=== PATIENT | male | born 1975 | race Caucasian/White ===

== ENCOUNTER 2019-08-21 14:50 | Emergency (ER) | payer MEDICAID ==
[~2019-08-21] VITALS: Ht 167.6 cm; Wt 99.8 kg
--- NOTE | 2019-08-21 15:10 | NUR ---
Patient to ER bed 08 to gown for evaluation. Side rails up. Report given to Emma SINGH.
--- NOTE | 2019-08-21 15:12 | NUR ---
Pt AAOx4 ambulated into ED c/o 10/10 L arm pain x 2 days after attempting to lift heavy trashcan full of rocks. Pain exacerbated upon pronation and supination. Skin pink dry and warm, breathing even and unlabored. +CMS. No other injuries/complaints per pt/noted. Will continue to monitor.
[2019-08-21 15:19] VITALS: BP_SYST 150
--- NOTE | 2019-08-21 15:27 | NUR ---
ER Dr. Rossi at bedside examining patient.
[2019-08-21 15:45] VITALS: BP_SYST 148
--- NOTE | 2019-08-21 15:45 | NUR ---
Patient given written and verbal discharge instructions and verbalizes understanding. ER MD discussed with patient the results and treatment provided. Patient in stable condition. ID arm band removed. Rx of TRAMADOL & MOTRIN given. Patient educated on pain management and to follow up with PMD. Pain Scale 6/10 TOLERABLE FOR PATIENT . Opportunity for questions provided and answered.
== END 2019-08-21 15:45 | disposition home or self-care (01) ==
LOC: SED 14:50
DX: S56.912A Strain of unspecified muscles, fascia and tendons at forearm level, left arm, initial encounter (principal); X50.0XXA Overexertion from strenuous movement or load, initial encounter; Y93.89 Activity, other specified; Y92.89 Other specified places as the place of occurrence of the external cause; Y99.8 Other external cause status
CPT/HCPCS: 99283

== ENCOUNTER 2020-08-05 07:41 | Emergency (ER) | payer MEDICAID, SELFPAY ==
[~2020-08-05] VITALS: Ht 167.6 cm; Wt 99.8 kg
[2020-08-05 07:41] VITALS: BP_SYST 127
--- NOTE | 2020-08-05 07:41 | NUR ---
Patient triaged and placed in waiting room. VSS and patient appears in no acute distress at this time. Accompanied by SELF, awaiting available bed, and MD notified of need for MSE.
--- NOTE | 2020-08-05 07:49 | NUR ---
PT STATES SINCE Jul, SOB, COUGH, BODY ACHES, FEVERS AND JUST FEELING HORRIBLE. PT STATES HE WAS EXPOSED WHILE GOING TO THE GYM, OTHER FRIENDS FROM THE GYM HAVE TESTED +. PT IS SPEAKING FULL SENTENCES AND IN NO DISTRESS.
--- NOTE | 2020-08-05 07:55 | NUR ---
DR JARRETT OUT TO EVALUATE PT IN TRIAGE TENT
--- NOTE | 2020-08-05 08:15 | NUR ---
PT SWABBED FOR COVID, TOLERATED IT WELL.
--- NOTE | 2020-08-05 08:20 | NUR ---
Patient given written and verbal discharge instructions and verbalizes understanding. ER MD discussed with patient the results and treatment provided. Patient in stable condition. ID arm band removed. Rx of MOTRIN given. Patient educated on pain management and to follow up with PMD. Pain Scale 0/10. Opportunity for questions provided and answered. Medication side effect fact sheet provided.
== END 2020-08-05 08:20 | disposition home or self-care (01) ==
LOC: SED 07:41
DX: R50.9 Fever, unspecified (principal); Z20.822 Contact with and (suspected) exposure to COVID-19
CPT/HCPCS: 99283; C9803; U0003

== ENCOUNTER 2020-08-07 07:36 | Inpatient (IN) | payer MEDICAID, SELFPAY ==
[~2020-08-07] VITALS: Ht 175.3 cm; Wt 78.0 kg
[2020-08-07 07:42] VITALS: BP_SYST 157
[2020-08-07] MEDS ORDERED: DEXAMETHASONE SOD PHOSPHATE 4 MG/ML VIAL IVP ONE (08:15)
[2020-08-07 09:08] LABS: BASOPHILS % (AUTO) 0.2 % (0.0-2.0); HEMATOCRIT 41.4 % (36-54); HEMOGLOBIN 13.5 g/dL (14.0-18.0); LYMPHOCYTES # (AUTO) 0.6 K/uL (1.0-5.5); LYMPHOCYTES % (AUTO) 4.5 % (20.5-51.5); MEAN CORPUSCULAR HEMOGLOBIN 27 pg (27-31); MEAN CORPUSCULAR HGB CONC 33 % (32-36); MEAN CORPUSCULAR VOLUME 84 fL (79.0-98.0); MONOCYTES # (AUTO) 0.8 K/uL (0.0-1.0); MONOCYTES % (AUTO) 6.7 % (1.7-9.3); NEUTROPHILS # (AUTO) 11.2 K/uL (1.8-7.7); NEUTROPHILS % (AUTO) 88.6 % (40.0-70.0); PLATELET COUNT (AUTO) 388 K/uL (130-430); RED BLOOD CELL COUNT(AUTO) 4.94 MIL/uL (4.2-6.2); RED CELL DISTRIBUTION WIDTH 15.2 % (9.0-15.0); WHITE BLOOD COUNT (AUTO) 12.6 K/uL (4.8-10.8)
[2020-08-07 09:28] LABS: ALBUMIN 2.9 g/dL (3.4-4.8); CALCIUM 8.1 mg/dL (8.4-11.0); CREATININE 0.98 mg/dL (0.55-1.30); POTASSIUM 4.7 mmol/L (3.5-5.1); TOTAL BILIRUBIN 0.2 mg/dL (0.0-1.0)
[2020-08-07] MEDS ORDERED: LORazepam 2 MG/ML VIAL IVP ONE (09:45)
[2020-08-07] MEDS ORDERED: DEXAMETHASONE SOD PHOSPHATE 10 MG/ML VIAL ONE (09:56)
[2020-08-07] MEDS ORDERED: HYDROcodone/ACETAMIN 10-325 MG TAB PO PRN (11:45)
[2020-08-07] MEDS ORDERED: ACETAMINOPHEN 325 MG TABLET PO PRN (11:45)
[2020-08-07] MEDS ORDERED: HYDROcodone/ACETAMIN 5-325 MG TAB (NORCO/ VICODIN) PO PRN (11:45)
[2020-08-07] MEDS ORDERED: LORazepam 2 MG/ML VIAL IVP PRN (11:45)
[2020-08-07] MEDS ORDERED: DEXA4VIA18 IVP (11:46)
[2020-08-07] MEDS ORDERED: NL IV (11:46)
[2020-08-07] MEDS ORDERED: REMD100V IVPB (11:46)
[2020-08-07] MEDS ORDERED: HYDR-4272 PO (11:52)
[2020-08-07] MEDS ORDERED: ACET325T PO (11:52)
[2020-08-07] MEDS ORDERED: ROCPM1 IV (11:52)
[2020-08-07] MEDS ORDERED: ATII2 INJ (11:52)
[2020-08-07] MEDS ORDERED: HYDR-4274 PO (11:52)
[2020-08-07] MEDS ORDERED: ONDA4AMP IJ (11:52)
[2020-08-07] MEDS ORDERED: AZIT500V6 IV (11:53)
[2020-08-07] MEDS ORDERED: cefTRIAXone 1 GM IVPB PREMIX 50 ML IV SCH (12:00)
[2020-08-07 12:07] VITALS: BP_SYST 120
[2020-08-07] MEDS ORDERED: ONDANSETRON HCL 4 MG/2 ML VIAL IVP PRN (12:15)
[2020-08-07] MEDS ORDERED: CEFTRIAXONE SOD 1 GM/ D5W 50 ML IV SCH ×2 (21:00)
[2020-08-07] MEDS ORDERED: AZITHROMYCIN 500 MG in NS 250 ML IV SCH (22:00)
[2020-08-08] MEDS ORDERED: DEXAMETHASONE SOD PHOSPHATE 4 MG/ML VIAL IVP SCH (09:00)
[2020-08-08] MEDS ORDERED: AZITHROMYCIN 500 MG/VIAL (ZITHROMAX) IV SCH (09:00)
== END 2020-08-07 13:16 | disposition left against medical advice (07) | DRG 137 ==
LOC: SED 07:36 → STU 11:40
PROVIDERS: ADMIT Preventive Medicine Preventive Medicine/Occupational Environmental Medicine; ATTEND Preventive Medicine Preventive Medicine/Occupational Environmental Medicine
DX: U07.1 COVID-19 (principal); J12.82 Pneumonia due to coronavirus disease 2019; Z53.29 Procedure and treatment not carried out because of patient's decision for other reasons
CPT/HCPCS: 36415; 71045; 80053; 84484; 85025; 93005; G0378; J0456; J0696; J1100; J2060; J7050; J7060